=== PATIENT | female | born 1965 | race Caucasian/White ===

== ENCOUNTER 2017-03-09 23:51 | Emergency (ER) | payer MEDICAID ==
[~2017-03-09] VITALS: Ht 162.6 cm; Wt 87.1 kg
[2017-03-10 00:16] VITALS: BP 144/78
[2017-03-10] MEDS ORDERED: IBUPROFEN 600 MG TAB PO ONE (02:00)
[2017-03-10] MEDS ORDERED: CYCLOBENZAPRINE HCL 10 MG TAB PO ONE (02:00)
== END 2017-03-10 02:45 | disposition home or self-care (01) ==
LOC: ER 23:54
DX: S46.811A Strain of other muscles, fascia and tendons at shoulder and upper arm level, right arm, initial encounter (principal); E11.9 Type 2 diabetes mellitus without complications; X58.XXXA Exposure to other specified factors, initial encounter; Y93.89 Activity, other specified; Y92.89 Other specified places as the place of occurrence of the external cause; Y99.8 Other external cause status

== ENCOUNTER 2020-02-21 13:27 | Emergency (ER) | payer MEDICAID ==
[~2020-02-21] VITALS: Ht 162.6 cm; Wt 94.8 kg
[2020-02-21] MEDS ORDERED: METHOCARBAMOL 500 MG TAB PO ONE (17:45)
[2020-02-21] MEDS ORDERED: KETOROLAC TROMETH 60MG/2ML VIAL IM ONE (17:45)
[2020-02-21 18:23] VITALS: BP 131/72
== END 2020-02-21 19:27 | disposition home or self-care (01) ==
LOC: ER 13:27
DX: S33.5XXA Sprain of ligaments of lumbar spine, initial encounter (principal); X58.XXXA Exposure to other specified factors, initial encounter; Y93.89 Activity, other specified; Y92.89 Other specified places as the place of occurrence of the external cause; Y99.8 Other external cause status
CPT/HCPCS: 72100; 96372; 99283; J1885